=== PATIENT | male | born 1940 | race Caucasian/White ===

== ENCOUNTER 2017-05-31 17:34 | Emergency (ER) | payer MEDICARE, MEDICAID ==
[2017-05-31 17:55] VITALS: BP 123/77
--- NOTE | 2017-05-31 19:19 | EDM.PDOC ---
ED HPI GENERAL MEDICAL PROBLEM - General Chief Complaint: Lower Extremity Injury/Pain Stated Complaint: FALL/HURT LT WRIST AND BOTH KNEES Time Seen by Provider: 05/31/17 18:10 Source of Information: Reports: Patient, Provider History Limitations: Reports: No Limitations - History of Present Illness INITIAL COMMENTS - FREE TEXT/NARRATIVE: History of present illness: [76-year-old was working in his garage and tripped over some cords and fell onto his knees. He ambulated into the emergency room. Is complaining of some minor knee pain he has his own personal nurse that wanted him checked out. She is concerned about his wrist as well but he says there is no pain there he low he fell onto his left wrist to break the fall.] Review of systems: As per history of present illness and below otherwise all systems reviewed and negative. Past medical history: As per history of present illness and as reviewed below otherwise noncontributory. Surgical history: As per history of present illness and as reviewed below otherwise noncontributory. Social history: No reported history of drug or alcohol abuse. Family history: As per history of present illness and as reviewed below otherwise noncontributory. Physical exam: HEENT: Atraumatic, normocephalic, pupils reactive, negative for conjunctival pallor or scleral icterus, mucous membranes moist, throat clear, neck supple, nontender, trachea midline. Lungs: Lung sounds are diminished but he's been a longtime smoker of cigars. Heart: S1S2, regular, negative for clicks, rubs, or JVD. Extremities: He has some erythema on the anterior portions of both of his knees is no breakage in skin. Ligamentous structures seem tight no obvious deformities. Examination of his left wrist reveals full range of motion crepitation and no pain on palpation no pain in his snuffbox Neuro: Awake, alert, oriented. Exam nonfocal. Diagnostics: [X-rays of his knees do not reveal any acute fractures] Therapeutics: [] Impression: [Bilateral contusion to the knees] Plan: [He should do fine. Apparently injured his left knee many years ago and has had some trouble with it off and on in the follow-up in the clinic on that.] Definitive disposition and diagnosis as appropriate pending reevaluation and review of above. Bilateral Knee Pain Score (Numeric/FACES): 5 - Related Data Allergies Allergy/AdvReac Type Severity Reaction Status Date / Time adhesive tape Allergy Blisters Verified 05/31/17 18:17 bee venom protein (honey bee) Allergy Swelling Verified 05/31/17 18:17 Home Meds: Home Meds LORazepam [Ativan] 1 mg PO BID 05/31/17 [History] Leuprolide [Lupron Depot] 11.25 mg IM ASDIRECTED 05/31/17 [History] Past Medical History Genitourinary History: Reports: Other (See Below) Other Genitourinary History: kidney cancer left. prostrate cancer Oncologic (Cancer) History: Reports: Prostate, Renal - Past Surgical History GI Surgical History: Reports: Appendectomy Male Surgical History: Reports: Nephrectomy, Prostate Biopsy, Other (See Below) Other Male Surgeries/Procedures: left kidney. frozen prostrate Social & Family History - Tobacco Use Smoking Status *Q: Never Smoker Review of Systems - Review of Systems Review Of Systems: ROS reveals no pertinent complaints other than HPI. ED EXAM, GENERAL - Physical Exam Exam: See Below Course - Vital Signs Last Recorded V/S: Last Vital Signs Temp 36.4 C 05/31/17 18:00 Pulse 53 L 05/31/17 18:00 Resp 16 05/31/17 18:00 BP 123/77 05/31/17 18:00 Pulse Ox 92 L 05/31/17 18:00 - Orders/Labs/Meds Orders: Active Orders 24 hr Category Date Time Status Knee 3V Bi [CR] Stat Exams 05/31/17 18:11 Taken Departure - Departure Time of Disposition: 19:18 Disposition: Home, Self-Care 01 Condition: Good Clinical Impression: Knee contusion Qualifiers: Encounter type: initial encounter Laterality: unspecified laterality Qualified Code(s): S80.00XA - Contusion of unspecified knee, initial encounter - Discharge Information Forms: ED Department Discharge Additional Instructions: As we discussed you may want to follow-up in the clinic to evaluate her left knee. - My Orders Last 24 Hours: My Active Orders 05/31/17 18:11 Knee 3V Bi [CR] Stat - Assessment/Plan Last 24 Hours: My Active Orders 05/31/17 18:11 Knee 3V Bi [CR] Stat
--- NOTE | 2017-06-01 09:05 | CR ---
Knee 3V Bi HISTORY: Fall COMPARISON: None FINDINGS: AP of the knees demonstrate mild medial compartmental narrowing. The right and left knee d emonstrate no fracture no effusion. No bony destructive process.
== END 2017-05-31 19:45 | disposition home or self-care (01) ==
LOC: JP.ED 17:34
DX: S80.02XA Contusion of left knee, initial encounter (principal); S80.01XA Contusion of right knee, initial encounter; Z91.09 Other allergy status, other than to drugs and biological substances; Z91.030 Bee allergy status; Z85.46 Personal history of malignant neoplasm of prostate; Z85.528 Personal history of other malignant neoplasm of kidney; Z90.49 Acquired absence of other specified parts of digestive tract; Z98.890 Other specified postprocedural states; W01.198A Fall on same level from slipping, tripping and stumbling with subsequent striking against other object, initial encounter; Y92.59 Other trade areas as the place of occurrence of the external cause
CPT/HCPCS: 735622650; 73562-50; 99283; 99284

== ENCOUNTER 2020-10-01 11:10 | Emergency (ER) | payer MEDICARE, MEDICAID ==
--- NOTE | 2020-10-01 12:25 | EDM.PDOC ---
ED HPI GENERAL MEDICAL PROBLEM - General Chief Complaint: Respiratory Problem Stated Complaint: difficult time breathin Time Seen by Provider: 10/01/20 12:10 Source of Information: Reports: Patient, Family, Old Records History Limitations: Reports: No Limitations - History of Present Illness INITIAL COMMENTS - FREE TEXT/NARRATIVE: 80 yo male smoker with a pHx of prostate CA and who only has one kidney presents with a productive cough in the mornings only for up to a couple weeks. Seems to be slowly getting worse. Sputum is white. No fever or chills. Was told by the clinic to come to the ER. Here with his daughter. Onset: Gradual Onset Date: 09/17/20 Duration: Week(s): (2), Getting Worse Location: Reports: Chest Quality: Reports: Other (no pain reported) Severity: Mild Improves with: Reports: Other (coughing in the morning seems to clear things out. ) Worsens with: Reports: Other (? not coughing while sleeping) Context: Reports: Other (see HPI, smoker) Associated Symptoms: Reports: Cough. Denies: Fever/Chills, Shortness of Breath (SOB only when coughing) Treatments DISABILITY COORDINATOR: Reports: Other (see below) (none) Back Pain Score (Numeric/FACES): 5 - Related Data Allergies Allergy/AdvReac Type Severity Reaction Status Date / Time adhesive tape Allergy Blisters Verified 10/01/20 11:54 bee venom protein (honey bee) Allergy Swelling Verified 10/01/20 11:54 clonazepam Allergy Hallucinati Verified 10/01/20 12:01 ons Home Meds: Home Meds LORazepam [Ativan] 1 mg PO BID 05/31/17 [History] Leuprolide [Lupron Depot] 11.25 mg IM ASDIRECTED 05/31/17 [History] Albuterol [Ventolin HFA] 1 puff IH ASDIRECTED PRN 10/01/20 [History] Gabapentin [Neurontin] 300 mg PO BID 10/01/20 [History] Metoprolol Tartrate 25 mg PO Q12H #60 tablet 10/01/20 [Rx] Morphine Sulfate 15 mg PO Q4HR PRN 10/01/20 [History] Naproxen 500 mg PO BID 10/01/20 [History] Ondansetron [Zofran ODT] 4 mg PO Q8HR PRN 10/01/20 [History] Sertraline [Zoloft] 150 mg PO DAILY 10/01/20 [History] Past Medical History Respiratory History: Reports: COPD Genitourinary History: Reports: Other (See Below) Other Genitourinary History: kidney cancer left. prostrate cancer Oncologic (Cancer) History: Reports: Prostate, Renal - Infectious Disease History Infectious Disease History: Reports: None - Past Surgical History GI Surgical History: Reports: Appendectomy Male Surgical History: Reports: Nephrectomy, Prostate Biopsy, Other (See Below) Other Male Surgeries/Procedures: left kidney. frozen prostrate Social & Family History - Tobacco Use Tobacco Use Comment: 3-4 day - Caffeine Use Caffeine Use: Reports: Coffee - Recreational Drug Use Recreational Drug Use: No ED ROS GENERAL - Review of Systems Review Of Systems: See Below Constitutional: Reports: No Symptoms. Denies: Fever, Chills HEENT: Reports: No Symptoms Respiratory: Reports: Shortness of Breath (only when coughing), Cough, Sputum (white). Denies: Wheezing, Pleuritic Chest Pain, Hemoptysis Cardiovascular: Reports: No Symptoms GI/Abdominal: Reports: No Symptoms : Reports: No Symptoms Musculoskeletal: Reports: No Symptoms Skin: Reports: No Symptoms Neurological: Reports: No Symptoms ED EXAM, GENERAL - Physical Exam Exam: See Below Exam Limited By: No Limitations General Appearance: Alert, WD/WN, No Apparent Distress Eye Exam: Bilateral Eye: Normal Inspection, PERRL Ears: Normal External Exam, Normal Canal, Hearing Grossly Normal, Normal TMs Ear Exam: Bilateral Ear: Auricle Normal, Canal Normal Nose: Normal Inspection, No Blood Throat/Mouth: Normal Inspection, Normal Lips, Normal Oropharynx, Normal Voice, No Airway Compromise Head: Atraumatic, Normocephalic Neck: Normal Inspection Respiratory/Chest: No Respiratory Distress, No Accessory Muscle Use, Rhonchi (bilaterally) Cardiovascular: Regular Rate, Rhythm, No Edema GI/Abdominal: Normal Bowel Sounds, Soft, Non-Tender, No Distention Back Exam: Normal Inspection. No: CVA Tenderness (R), CVA Tenderness (L) Extremities: Normal Inspection, Normal Range of Motion, Non-Tender, Pedal Edema (1+ pitting edema to both LE's below the knees.) Neurological: Alert, Oriented, CN II-XII Intact, Normal Cognition, No Motor/Sensory Deficits Psychiatric: Normal Affect, Normal Mood Skin Exam: Warm, Dry, Intact, Normal Color, No Rash ED RESPIRATORY PROCEDURES - Additional/Other Procedure(s) Other (Free Text) Procedure(s): Drained about 20 ml of non-clotted blood from a left olecranon bursitis after local anesth with 2 ml of 1% lido + epi. 4 inch TRENT applied after drainage. #1 Interpretation EKG Date: 10/01/20 Time: 13:30 Rhythm: NSR Rate (Beats/Min): 83 [place]: Normal P-Wave: Present QRS: RBBB (and LAFB) ST-T: Depressed (lead V4, ? leads V1-V3) QT: Normal Comparison: NA - No Prior EKG Course - Vital Signs Last Recorded V/S: Last Vital Signs Temp 36.4 C 10/01/20 12:09 Pulse 72 10/01/20 14:37 Resp 16 10/01/20 14:37 BP 142/89 H 10/01/20 14:37 Pulse Ox 95 10/01/20 14:37 - Orders/Labs/Meds Orders: Active Orders 24 hr Category Date Time Status Cardiac Monitoring [RC] .As Directed Care 10/01/20 13:14 Active EKG Documentation Completion [RC] ASDIRECTED Care 10/01/20 13:13 Active CORONAVIRUS COVID-19, [place] Routine Lab 10/01/20 15:01 Received EKG 12 Lead [EK] Routine Ther 10/01/20 13:13 Ordered Labs: Laboratory Tests 10/01/20 10/01/20 10/01/20 Range/Units 12:31 12:31 12:31 WBC 8.8 (4.5-11.0) K/uL RBC 4.18 L (4.30-5.90) M/uL Hgb 12.4 (12.0-15.0) g/dL Hct 39.9 L (40.0-54.0) % MCV 96 (80-98) fL MCH 30 (27-31) pg MCHC 31 L (32-36) % Plt Count 225 (150-400) K/uL D-Dimer, Quantitative (0.0-500.0) ng/mL Sodium 138 L (140-148) mmol/L Potassium 3.7 (3.6-5.2) mmol/L Chloride 103 (100-108) mmol/L Carbon Dioxide 25 (21-32) mmol/L Anion Gap 13.7 (5.0-14.0) mmol/L BUN 13 (7-18) mg/dL Creatinine 1.1 (0.8-1.3) mg/dL Est Cr Clr Drug Dosing 54.38 mL/min Estimated GFR (MDRD) > 60 (>60) Glucose 115 H (74-106) mg/dL Calcium 8.2 L (8.5-10.1) mg/dL Troponin I (0.000-0.056) ng/mL C-Reactive Protein 0.30 (0.0-0.3) mg/dL 10/01/20 10/01/20 10/01/20 Range/Units 12:31 12:31 14:46 WBC (4.5-11.0) K/uL RBC (4.30-5.90) M/uL Hgb (12.0-15.0) g/dL Hct (40.0-54.0) % MCV (80-98) fL MCH (27-31) pg MCHC (32-36) % Plt Count (150-400) K/uL D-Dimer, Quantitative 1175.36 H (0.0-500.0) ng/mL Sodium (140-148) mmol/L Potassium (3.6-5.2) mmol/L Chloride (100-108) mmol/L Carbon Dioxide (21-32) mmol/L Anion Gap (5.0-14.0) mmol/L BUN (7-18) mg/dL Creatinine (0.8-1.3) mg/dL Est Cr Clr Drug Dosing mL/min Estimated GFR (MDRD) (>60) Glucose (74-106) mg/dL Calcium (8.5-10.1) mg/dL Troponin I 0.165 H* 0.174 H* (0.000-0.056) ng/mL C-Reactive Protein (0.0-0.3) mg/dL Meds: Medications Discontinued Medications Generic Name Dose Route Start Last Admin Trade Name Freq PRN Reason Stop Dose Admin Aspirin 324 mg 10/01/20 13:14 10/01/20 13:39 Aspirin PO 10/01/20 13:15 324 mg ONETIME ONE Administration - Radiology Interpretation Free Text/Narrative:: CXR-RLL infiltrate - Re-Assessments/Exams Free Text/Narrative Re-Assessment/Exam: 10/01/20 15:21 Is aware that he has had a recent MD, still wants to go home. Daughter is here and understands. Departure - Departure Time of Disposition: 15:30 Disposition: Home, Self-Care 01 Condition: Fair Clinical Impression: Non-STEMI (non-ST elevated myocardial infarction), Olecranon bursitis, left elbow, Elevated d-dimer - Discharge Information *PRESCRIPTION DRUG MONITORING PROGRAM REVIEWED*: No *COPY OF PRESCRIPTION DRUG MONITORING REPORT IN PATIENT DEVEN: No Referrals: Christopher Light NP [Primary Care Provider] - Forms: ED Department Discharge Additional Instructions: Take an aspirin 81 mg every day with food. Take metoprolol 25 mg every 12 hrs with food. Keep an TRENT wrap on your elbow for up to a week to prevent recurrence. Recheck in the clinic later this week. Return as needed. Avoid salt or salty foods. Elevate your legs to reduce swelling. Sepsis Event Note (ED) - Evaluation Sepsis Screening Result: No Definite Risk - Focused Exam Vital Signs: Vital Signs Temp Pulse Resp BP Pulse Ox 10/01/20 14:37 72 16 142/89 H 95 10/01/20 12:09 36.4 C 51 L 20 154/94 H 93 L 10/01/20 11:53 36.4 C 51 L 20 154/94 H 93 L 10/01/20 11:42 36.4 C 51 L 20 154/94 H 93 L - My Orders Last 24 Hours: My Active Orders 10/01/20 13:13 EKG Documentation Completion [RC] ASDIRECTED EKG 12 Lead [EK] Routine 10/01/20 13:14 Cardiac Monitoring [RC] .As Directed 10/01/20 15:01 CORONAVIRUS COVID-19, [place] Routine - Assessment/Plan Last 24 Hours: My Active Orders 10/01/20 13:13 EKG Documentation Completion [RC] ASDIRECTED EKG 12 Lead [EK] Routine 10/01/20 13:14 Cardiac Monitoring [RC] .As Directed 10/01/20 15:01 CORONAVIRUS COVID-19, [place] Routine
--- NOTE | 2020-10-01 13:13 | CR ---
CHEST: 2 view CLINICAL HISTORY:Productive cough COMPARISON:Chest CT December 2019 FINDINGS: The heart is mildly enlarged. Pulmonary vascular is normal. There is patchy infiltrate in the right lower lobe. There are no effusions. Lungs are generally hyperaerated. IMPRESSION: Right lower lobe pneumonia superimposed over chronic lung changes. Mild cardiomegaly
[2020-10-01] MEDS ORDERED: Aspirin 81 MG Tab.Chew PO ONE (13:14)
[2020-10-01 14:38] VITALS: BP 142/89
[2020-10-01] MEDS ORDERED: Metoprolol Tartrate 25 MG Tab PO ONE (15:22)
[2020-10-01 15:32] VITALS: PULSE 76
== END 2020-10-01 15:55 | disposition home or self-care (01) ==
LOC: JP.ED 11:10
DX: I21.4 Non-ST elevation (NSTEMI) myocardial infarction (principal); M70.22 Olecranon bursitis, left elbow; R79.1 Abnormal coagulation profile; I45.10 Unspecified right bundle-branch block; R60.0 Localized edema; J44.9 Chronic obstructive pulmonary disease, unspecified; F17.200 Nicotine dependence, unspecified, uncomplicated; Z91.048 Other nonmedicinal substance allergy status; Z91.030 Bee allergy status; Z88.8 Allergy status to other drugs, medicaments and biological substances; Z79.899 Other long term (current) drug therapy; Z20.828 Contact with and (suspected) exposure to other viral communicable diseases
CPT/HCPCS: 36415; 71046; 80048; 84484; 85027; 85379; 86140; 93005; 99284; A9270; U0002; 20605; 93010

== ENCOUNTER 2021-04-17 09:22 | Emergency (ER) | payer MEDICARE, MEDICAID ==
[2021-04-17] MEDS ORDERED: Sodium Chloride 0.9% 10 ML Syringe FLUSH PRN (09:42)
--- NOTE | 2021-04-17 10:27 | EDM.PDOC ---
ED HPI GENERAL MEDICAL PROBLEM - General Chief Complaint: General Stated Complaint: CONFUSION VIA NORTH Time Seen by Provider: 04/17/21 10:10 Source of Information: Reports: Patient, Family, Old Records History Limitations: Reports: No Limitations - History of Present Illness INITIAL COMMENTS - FREE TEXT/NARRATIVE: 80 yo male was sent in by family for reported weakness and mild confusion. Recently was tx'd for a UTI. No fever. Has metastatic prostate CA. Coughs occasionally. Appetite has been diminished lately. Onset: Gradual Duration: Day(s):, Getting Worse Location: Reports: Generalized Quality: Reports: Other (new pain not reported) Improves with: Reports: None Worsens with: Reports: Other (unsure, time(weakness)) Context: Reports: Other (See HPI) Associated Symptoms: Reports: Confusion (mild), Malaise, Nausea/Vomiting (once with a coughing spell at home), Weakness (generalized). Denies: Chest Pain, Fever/Chills, Shortness of Breath Treatments FIELD SECRETARY: Reports: Other (see below) (none) Back Pain Score (Numeric/FACES): 2 - Related Data Allergies Allergy/AdvReac Type Severity Reaction Status Date / Time adhesive tape Allergy Blisters Verified 04/17/21 09:39 bee venom protein (honey bee) Allergy Swelling Verified 04/17/21 09:39 clonazepam Allergy Hallucinati Verified 04/17/21 09:39 ons Home Meds: Home Meds Leuprolide [Lupron Depot] 11.25 mg IM ASDIRECTED 05/31/17 [History] Albuterol [Ventolin HFA] 1 puff IH ASDIRECTED PRN 10/01/20 [History] Metoprolol Tartrate 25 mg PO Q12H #60 tablet 10/01/20 [Rx] Morphine Sulfate 15 mg PO Q4HR PRN 10/01/20 [History] Sertraline [Zoloft] 150 mg PO DAILY 10/01/20 [History] Aspirin [Johnathan Chewable] 81 mg PO DAILY 04/17/21 [History] Calcium Carbonate/Vitamin D3 [Calcium 500Mg-Vit D3 15Mcg Tab] 1 tab PO DAILY 04/17/21 [History] Cholecalciferol (Vitamin D3) [Vitamin D3] 5,000 unit PO DAILY 04/17/21 [History] Furosemide [Lasix] 20 mg PO DAILY 04/17/21 [History] Naproxen [Naprosyn] 500 mg PO DAILY PRN 04/17/21 [History] Sertraline [Zoloft] 150 mg PO DAILY 04/17/21 [History] Umeclidinium [place] [Incruse Ellipta*] 1 puff INH ASDIRECTED 04/17/21 [History] Past Medical History HEENT History: Reports: Impaired Vision Cardiovascular History: Reports: [place], Other (See Below) Other Cardiovascular History: elivated trop Sep 2020 Respiratory History: Reports: COPD Genitourinary History: Reports: Other (See Below) Other Genitourinary History: kidney cancer left. prostrate cancer Oncologic (Cancer) History: Reports: Prostate, Renal - Infectious Disease History Infectious Disease History: Reports: Chicken Pox - Past Surgical History GI Surgical History: Reports: Appendectomy Male Surgical History: Reports: Nephrectomy, Prostate Biopsy, Other (See Below) Other Male Surgeries/Procedures: left kidney. frozen prostrate Musculoskeletal Surgical History: Reports: Other (See Below) Other Musculoskeletal Surgeries/Procedures:: Bone mets Social & Family History - Tobacco Use Tobacco Use Status *Q: Current Every Day Tobacco User Years of Tobacco use: 5 Packs/Tins Daily: 1 Used Tobacco, but Quit: No Second Hand Smoke Exposure: No - Caffeine Use Caffeine Use: Reports: Coffee, Soda - Recreational Drug Use Recreational Drug Use: No ED ROS GENERAL - Review of Systems Review Of Systems: See Below Constitutional: Reports: Malaise, Weakness (generalized), Decreased Appetite HEENT: Reports: No Symptoms Respiratory: Reports: No Symptoms Cardiovascular: Reports: No Symptoms Endocrine: Reports: No Symptoms GI/Abdominal: Reports: Decreased Appetite, Vomiting (once with coughing recently) : Reports: No Symptoms Musculoskeletal: Reports: No Symptoms Skin: Reports: No Symptoms Neurological: Reports: Confusion (mild) ED EXAM, GENERAL - Physical Exam Exam: See Below Exam Limited By: No Limitations General Appearance: Alert, WD/WN, No Apparent Distress Eye Exam: Bilateral Eye: Normal Inspection Ears: Normal External Exam, Normal Canal, Hearing Loss Ear Exam: Bilateral Ear: Auricle Normal, Canal Normal Nose: Normal Inspection, No Blood Throat/Mouth: Normal Inspection, Normal Lips, Normal Oropharynx, Normal Voice, No Airway Compromise Head: Atraumatic, Normocephalic Neck: Normal Inspection, Non-Tender. No: Lymphadenopathy (R), Lymphadenopathy (L) Respiratory/Chest: No Respiratory Distress, Lungs Clear, Normal Breath Sounds, No Accessory Muscle Use Cardiovascular: Regular Rate, Rhythm, No Edema GI/Abdominal: Normal Bowel Sounds, Soft, Non-Tender, No Distention Back Exam: Normal Inspection Extremities: Normal Inspection, Normal Range of Motion, Non-Tender, No Pedal Edema Neurological: Alert, Oriented, CN II-XII Intact, Normal Cognition, No Motor/Sensory Deficits Psychiatric: Normal Affect, Normal Mood Skin Exam: Warm, Dry, Intact, Normal Color, No Rash #1 Interpretation EKG Date: 04/17/21 Time: 10:25 Rhythm: NSR Rate (Beats/Min): 62 [place]: Normal P-Wave: Present QRS: RBBB ST-T: Normal QT: Normal Comparison: Change From Previous EKG (rate has slowed from 80 to 60/min. No other changes.) Course - Vital Signs Last Recorded V/S: Last Vital Signs Temp 35.8 C L 04/17/21 12:32 Pulse 67 04/17/21 12:32 Resp 18 04/17/21 12:32 BP 111/67 04/17/21 12:32 Pulse Ox 93 L 04/17/21 12:32 - Orders/Labs/Meds Orders: Active Orders 24 hr Category Date Time Status Cardiac Monitoring [RC] .As Directed Care 04/17/21 10:25 Active EKG Documentation Completion [RC] ASDIRECTED Care 04/17/21 10:24 Active Sodium Chloride 0.9% [Saline Flush] Med 04/17/21 09:42 Active 10 ml FLUSH ASDIRECTED PRN Saline Lock Insert [OM.PC] Routine Oth 04/17/21 09:42 Ordered EKG 12 Lead [EK] Routine Ther 04/17/21 10:24 Ordered Medication Orders Sodium Chloride (Sodium Chloride 0.9% 10 Ml Syringe) 10 ml FLUSH ASDIRECTED PRN PRN Reason: Keep Vein Open Labs: Laboratory Tests 04/17/21 04/17/21 04/17/21 Range/Units 09:54 09:54 13:13 WBC 10.6 (4.5-11.0) K/uL RBC 4.25 L (4.30-5.90) M/uL Hgb 13.0 (12.0-15.0) g/dL Hct 40.3 (40.0-54.0) % MCV 95 (80-98) fL MCH 31 (27-31) pg MCHC 32 (32-36) % Plt Count 241 (150-400) K/uL Sodium 136 L (140-148) mmol/L Potassium 4.0 (3.6-5.2) mmol/L Chloride 100 (100-108) mmol/L Carbon Dioxide 26 (21-32) mmol/L Anion Gap 14.0 (5.0-14.0) mmol/L BUN 23 H D (7-18) mg/dL Creatinine 1.3 (0.8-1.3) mg/dL Est Cr Clr Drug Dosing 48.91 mL/min Estimated GFR (MDRD) 53 L (>60) Glucose 89 (74-106) mg/dL Calcium 9.0 (8.5-10.1) mg/dL Troponin I 0.134 H* (0.000-0.056) ng/mL Urine Color Yellow (YELLOW) Urine Appearance Slightly cloudy A (CLEAR) Urine pH 6.0 (5.0-8.0) Ur Specific [place] 1.020 (1.008-1.030) Urine Protein 30 H (NEGATIVE) mg/dL Urine Glucose (UA) Negative (NEGATIVE) mg/dL Urine Ketones Trace H (NEGATIVE) mg/dL Urine Occult Blood Moderate H (NEGATIVE) Urine Nitrite Negative (NEGATIVE) Urine Bilirubin Small H (NEGATIVE) Urine Urobilinogen 0.2 (0.2-1.0) EU/dL Ur Leukocyte Esterase Negative (NEGATIVE) Urine RBC 40-50 H (0-5) Urine WBC 0-5 (0-5) Ur Epithelial Cells Not seen Amorphous Sediment Not seen Urine Bacteria Rare Urine Mucus Not seen Meds: Medications Generic Name Dose Route Start Last Admin Trade Name Freq PRN Reason Stop Dose Admin Sodium Chloride 10 ml 04/17/21 09:42 Sodium Chloride 0.9% 10 Ml Syringe FLUSH ASDIRECTED PRN Keep Vein Open Discontinued Medications Generic Name Dose Route Start Last Admin Trade Name Freq PRN Reason Stop Dose Admin Lactated Ringer's 1,000 mls @ 1,000 mls/hr 04/17/21 10:43 04/17/21 10:53 Ringers, Lactated IV 04/17/21 11:42 1,000 mls/hr BOLUS ONE Administration Lactated Ringer's 1,000 mls @ 1,000 mls/hr 04/17/21 12:23 04/17/21 12:30 Ringers, Lactated IV 04/17/21 13:22 1,000 mls/hr BOLUS ONE Administration - Re-Assessments/Exams Free Text/Narrative Re-Assessment/Exam: 04/17/21 13:29 doing better after IV fluids. Will d/c. Departure - Departure Time of Disposition: 13:40 Disposition: Home, Self-Care 01 Condition: Fair Clinical Impression: Mild dehydration - Discharge Information *PRESCRIPTION DRUG MONITORING PROGRAM REVIEWED*: Not Applicable *COPY OF PRESCRIPTION DRUG MONITORING REPORT IN PATIENT DEVEN: Not Applicable Referrals: Christopher Light NP [Primary Care Provider] - Forms: ED Department Discharge Additional Instructions: Continue current meds. F/U with your provider next week. Drink more fluids than you have been, enough so your urine is light yellow. Sepsis Event Note (ED) - Evaluation Sepsis Screening Result: No Definite Risk - Focused Exam Vital Signs: Vital Signs Temp Pulse Resp BP Pulse Ox 04/17/21 12:32 35.8 C L 67 18 111/67 93 L 04/17/21 09:36 36.4 C 66 16 121/75 94 L - My Orders Last 24 Hours: My Active Orders 04/17/21 09:42 Sodium Chloride 0.9% [Saline Flush] 10 ml FLUSH ASDIRECTED PRN Saline Lock Insert [OM.PC] Routine 04/17/21 10:24 EKG Documentation Completion [RC] ASDIRECTED EKG 12 Lead [EK] Routine 04/17/21 10:25 Cardiac Monitoring [RC] .As Directed - Assessment/Plan Last 24 Hours: My Active Orders 04/17/21 09:42 Sodium Chloride 0.9% [Saline Flush] 10 ml FLUSH ASDIRECTED PRN Saline Lock Insert [OM.PC] Routine 04/17/21 10:24 EKG Documentation Completion [RC] ASDIRECTED EKG 12 Lead [EK] Routine 04/17/21 10:25 Cardiac Monitoring [RC] .As Directed
[2021-04-17] MEDS ORDERED: Lactated Ringers 1,000 ML IV ONE ×2 (10:43→12:23)
[2021-04-17 12:33] VITALS: BP 111/67; PULSE 67
== END 2021-04-17 14:10 | disposition home or self-care (01) ==
LOC: JP.ED 09:22
DX: E86.0 Dehydration (principal); I25.2 Old myocardial infarction; J44.9 Chronic obstructive pulmonary disease, unspecified; I45.10 Unspecified right bundle-branch block; Z85.46 Personal history of malignant neoplasm of prostate; Z72.0 Tobacco use; Z88.8 Allergy status to other drugs, medicaments and biological substances; Z91.048 Other nonmedicinal substance allergy status; Z91.030 Bee allergy status; Z79.82 Long term (current) use of aspirin; Z79.899 Other long term (current) drug therapy
CPT/HCPCS: 36415; 80048; 81001; 84484; 85027; 93005; 99285; J7120